=== PATIENT | female | born 1985 | race Native Hawaiian/Other Pacific Islander ===

== ENCOUNTER 2019-02-19 19:32 | Emergency (ER) | payer OTHER ==
[~2019-02-19] VITALS: Ht 170.2 cm; Wt 57.6 kg
[2019-02-19 20:32] LABS: PLATELET COUNT 232 K/uL (152-353)
[2019-02-19 21:06] LABS: POTASSIUM 3.4 mmol/L (3.6-5.2); SODIUM 138 mmol/L (136-145)
[2019-02-19 22:38] VITALS: BP 132/93; TEMP 97.9
== END 2019-02-19 22:43 | disposition home or self-care (01) ==
LOC: ED 19:32
PROVIDERS: Family Medicine
DX: N13.2 Hydronephrosis with renal and ureteral calculous obstruction (principal); E87.6 Hypokalemia
CPT/HCPCS: 36415; 80053; 84702; 85027; 96360; 96375; 99284; J1885; J2405

== ENCOUNTER 2020-12-26 11:19 | Outpatient (CLI) | payer OTHER | END 2020-12-26 21:52 | disposition home or self-care (01) | LOC: RAD 11:19 | PROVIDERS: ATTEND Nurse Practitioner Gerontology | DX: R06.02 Shortness of breath (principal); R07.9 Chest pain, unspecified; M79.602 Pain in left arm | CPT/HCPCS: 93005 ==

== ENCOUNTER 2022-09-10 13:04 | Outpatient (CLI) | payer BC | END 2022-09-10 18:59 | disposition home or self-care (01) | LOC: RAD 13:04 | PROVIDERS: ATTEND Nurse Practitioner Gerontology | DX: M54.2 Cervicalgia (principal); M54.51 Vertebrogenic low back pain ==